=== PATIENT | female | born 1970 | race Caucasian/White ===

== ENCOUNTER 2017-09-02 18:27 | Emergency (ER) | payer OTHER ==
[~2017-09-02] VITALS: Ht 175.3 cm; Wt 109.8 kg
[~2017-09-02 18:27] MED LIST: ACET325 PO; ALBU90OI INH; ALBU90OI6; ALPR.5 PO; AMIT50 PO; AVONEX PEN30 MCG/0.5 IM; BUDE6HFA INH; Bactrim Ds Tab1 EACH PO; CALCIUM + D SO1 EACH PO; COMPAZINE10 MG PO; CYAN1000 PO; Cipro500 MG PO; Crutch1 EACH MISC; DIAZ5 PO; ESTR2 PO; Flagyl500 MG PO; GABA300 PO; IBUP400 PO; IBUP600 PO; LIDO5TP TOP; LISI5 PO; Norco 5-325 Ta1 EACH PO; OMEP10ER; OMEP10ER PO; OSTERA TABLET1 EACH PO; OXYACE5T PO; OXYC5; PENVK500 PO; PROACE100 PO; Pepto-Bism525 MG/15; Percocet 5-3251 EACH PO; QVAR7.3 G1 INH; SUMA25 PR; Sumatriptan5 MG PO; TOPI25 PO; Ultram50 MG PO; VICODIN 5-3001 EACH PO; Zofran Odt4 MG SL
[2017-09-02] MEDS ORDERED: Robaxin-750750 MG PO (20:28)
[2017-09-02] MEDS ORDERED: IBUP600 PO (20:28)
== END 2017-09-02 20:56 | disposition home or self-care (01) ==
LOC: ER 18:27
DX: M62.830 Muscle spasm of back (principal); M62.838 Other muscle spasm; J44.9 Chronic obstructive pulmonary disease, unspecified; F17.210 Nicotine dependence, cigarettes, uncomplicated; Z88.5 Allergy status to narcotic agent; Z88.8 Allergy status to other drugs, medicaments and biological substances; Z79.899 Other long term (current) drug therapy; Z79.51 Long term (current) use of inhaled steroids
CPT/HCPCS: 99283

== ENCOUNTER 2019-10-04 20:25 | Observation (INO) | payer OTHER ==
[~2019-10-04] VITALS: Ht 170.2 cm; Wt 95.2 kg
[~2019-10-04 20:25] MED LIST changes: -ALBU90OI INH; -AMIT50 PO; -BUDE6HFA INH; -LISI5 PO; -OMEP10ER PO; -OXYC5; +Robaxin-750750 MG PO; -TOPI25 PO
[2019-10-04] MEDS ORDERED: BUDE6HFA INH (20:47)
[2019-10-04] MEDS ORDERED: OXYC5 PO (20:48)
[2019-10-04] MEDS ORDERED: ALBU90OI INH (20:49)
[2019-10-04] MEDS ORDERED: ESTROGEN-METHY1 EAC1 PO (20:49)
[2019-10-04] MEDS ORDERED: Tessalon Perle100 MG PO (20:51)
[2019-10-04] MEDS ORDERED: OMEP20ER PO (20:53)
[2019-10-04] MEDS ORDERED: LISI5 PO (20:54)
[2019-10-04] MEDS ORDERED: TOPI50 PO (20:54)
[2019-10-04] MEDS ORDERED: AMIT25 PO (20:55)
[2019-10-04] MEDS ORDERED: GABAPENTIN600 MG PO (21:02)
[2019-10-04] MEDS ORDERED: PROZAC40 MG PO (21:02)
[2019-10-04 21:06] LABS: BASOPHILS ABSOLUTE AUTO 0.07 K/mm3 (0.00-0.23); BASOPHILS PERCENT AUTO 1 % (0-2); EOSINOPHILS ABSOLUTE AUTO 0.27 K/mm3 (0.00-0.68); EOSINOPHILS PERCENT AUTO 3 % (0-6); Hematocrit 46.7 % (33.0-51.0); Hemoglobin 15.8 g/dL (11.5-16.0); IMMATURE GRAN ABSOLUTE AUTO 0.04 K/mm3 (0.00-0.10); IMMATURE GRAN PERCENT AUTO 1 % (0-1); LYMPHOCYTES ABSOLUTE AUTO 2.84 K/mm3 (0.84-5.20); LYMPHOCYTES PERCENT AUTO 33 % (21-46); MONOCYTES ABSOLUTE AUTO 0.45 K/mm3 (0.16-1.47); MONOCYTES PERCENT AUTO 5 % (4-13); Mean Corpuscular HGB 31.2 pg (26.0-34.0); Mean Corpuscular HGB Conc 33.8 g/dL (31.5-36.5); Mean Corpuscular Volume 92 fL (80-100); Mean Platelet Volume 11.5 fL (9.1-12.4); NEUTROPHILS ABSOLUTE AUTO 4.83 K/mm3 (1.96-9.15); NEUTROPHILS PERCENT AUTO 57 % (41-73); Platelet Count 167 K/mm3 (150-400); RDW Coefficient Variation 14.2 % (11.7-14.2); RDW Standard Deviation 47.7 fL (35.1-46.3); Red Blood Cell Count 5.07 M/mm3 (3.80-5.20)
[2019-10-04] MEDS ORDERED: Baclofen10 MG PO (21:14)
[2019-10-04 21:31] LABS: Alanine Aminotransfer (ALT/SGP 38 U/L (12-78); Albumin, Blood 3.7 g/dL (3.4-5.0); Albumin/Globulin Ratio 1.1 (0.8-1.8); Alk Phos 78 U/L (50-136); Anion Gap 10 mmol/L (6-16); Aspartate Aminotrans (AST/SGOT 22 U/L (12-37); Bilirubin, Total 0.3 mg/dL (0.1-1.0); Blood Urea Nitrogen 9 mg/dL (8-24); Bun/Creatinine Ratio 11.6 (12.0-20.0); CO2, Blood 21 mmol/L (21-32); Calcium, Blood 8.8 mg/dL (8.5-10.1); Chloride, Blood 112 mmol/L (98-108); Creatinine, Blood 0.78 mg/dL (0.40-1.00); Ethanol (Alcohol), Blood, Med 176 mg/dL; Globulin, Blood 3.3 g/dL (2.2-4.0); Glomerular Filtration Rate >60 (60-); Glucose, Blood 118 mg/dL (70-99); Potassium, Blood 3.5 mmol/L (3.5-5.5); Salicylate 2.4 mg/dL (2.8-20.0); Sodium, Blood 143 mmol/L (136-145)
[2019-10-04 21:32] LABS: Thyroxine (T4) 11.4 ug/dL (4.8-13.9)
[2019-10-04 21:33] LABS: Acetaminophen, Random <2.0 ug/mL (10.0-30.0)
[2019-10-05 10:23] LABS: Source, Urine Clean Catch
[2019-10-05 10:29] LABS: Bilirubin, Urine Neg (Neg); Blood, Urine Neg (Neg); Glucose Qualitative, Urine Neg (Neg); Ketones, Urine 1+ (Neg); Leukocyte Esterase, Urine 1+ (Neg); Nitrite, Urine Neg (Neg); Protein, Urine 1+ (Neg); Urobilinogen, Urine NORM (Normal)
[2019-10-05 10:51] LABS: U Amphetamine Screen DETECTED; U Methamphetamine Screen DETECTED
[2019-10-05 10:52] LABS: U Barbituate Screen Not Detected; U Benzodiazapine Screen DETECTED; U Buprenorphine Screen Not Detected; U Cannabinoids Screen Not Detected; U Cocaine Screen Not Detected; U Methadone Screen Not Detected; U Opiates Screen Not Detected; U Oxycodone Screen Not Detected; U Phencyclidine Screen Not Detected; U Propoxyphene Screen Not Detected
[2019-10-05 10:55] LABS: Appearance, Urine Clear (Clear); Bacteria Rare /hpf; Color, Urine Yellow (P-Yellow); Red Blood Cells, Urine Not Seen /hpf (0-2); Squamous Epithelial Cells Rare /hpf (Few); White Blood Cells, Urine 0-2 /hpf (0-5)
== END 2019-10-05 11:24 | disposition home or self-care (01) ==
LOC: ER 20:25 → EOR 20:26
PROVIDERS: ADMIT Emergency Medicine
DX: F10.129 Alcohol abuse with intoxication, unspecified (principal); R45.851 Suicidal ideations; F32.9 Major depressive disorder, single episode, unspecified; K21.9 Gastro-esophageal reflux disease without esophagitis; G43.909 Migraine, unspecified, not intractable, without status migrainosus; J45.909 Unspecified asthma, uncomplicated; Z87.891 Personal history of nicotine dependence; Z88.5 Allergy status to narcotic agent; Z88.8 Allergy status to other drugs, medicaments and biological substances; Z79.899 Other long term (current) drug therapy
CPT/HCPCS: 36415; 80053; 81001; 81025; 84436; 85025; 99285; G0378; G0480

== ENCOUNTER 2019-11-15 12:38 | Inpatient (IN) | payer OTHER ==
[~2019-11-15] VITALS: Ht 167.6 cm; Wt 109.1 kg
[~2019-11-15 12:38] MED LIST changes: +Baclofen10 MG PO; +GABAPENTIN600 MG PO; +PROZAC40 MG PO; +Tessalon Perle100 MG PO
[2019-11-15 13:08] LABS: Source, Urine Clean Catch
[2019-11-15 13:15] LABS: Blood, Urine Neg (Neg); Glucose Qualitative, Urine Neg (Neg); Ketones, Urine 1+ (Neg); Leukocyte Esterase, Urine Neg (Neg); Nitrite, Urine Neg (Neg); Protein, Urine 2+ (Neg); Urobilinogen, Urine 2+ (Normal)
[2019-11-15 13:22] LABS: Alanine Aminotransfer (ALT/SGP 46 U/L (12-78); Albumin, Blood 3.7 g/dL (3.4-5.0); Alk Phos 79 U/L (50-136); Anion Gap 5 mmol/L (6-16); Aspartate Aminotrans (AST/SGOT 33 U/L (12-37); Bilirubin, Total 0.8 mg/dL (0.1-1.0); Blood Urea Nitrogen 12 mg/dL (8-24); Bun/Creatinine Ratio 15.2 (12.0-20.0); CO2, Blood 24 mmol/L (21-32); Calcium, Blood 8.9 mg/dL (8.5-10.1); Chloride, Blood 109 mmol/L (98-108); Creatinine, Blood 0.79 mg/dL (0.40-1.00); Globulin, Blood 3.7 g/dL (2.2-4.0); Glomerular Filtration Rate >60 (60-); Glucose, Blood 66 mg/dL (70-99); Potassium, Blood 4.9 mmol/L (3.5-5.5); Salicylate 2.4 mg/dL (2.8-20.0); Sodium, Blood 138 mmol/L (136-145); Total Protein, Blood 7.4 g/dL (6.4-8.2)
[2019-11-15 13:23] LABS: Acetaminophen, Random <2.0 ug/mL (10.0-30.0)
[2019-11-15] MEDS ORDERED: LISI5 PO (13:26)
[2019-11-15] MEDS ORDERED: OMEP20ER PO (13:26)
[2019-11-15] MEDS ORDERED: TOPI50 PO (13:26)
[2019-11-15] MEDS ORDERED: ESTROGEN-METHY1 EAC1 PO (13:27)
[2019-11-15] MEDS ORDERED: BUDE6HFA INH (13:27)
[2019-11-15] MEDS ORDERED: AMIT25 PO (13:27)
[2019-11-15] MEDS ORDERED: OXYC5 PO (13:27)
[2019-11-15] MEDS ORDERED: VENLAFAXINE H37.5 M1 PO (13:28)
[2019-11-15] MEDS ORDERED: PREGABALIN150 MG PO (13:29)
[2019-11-15] MEDS ORDERED: ALBU90OI INH (13:30)
[2019-11-15 13:32] LABS: U Amphetamine Screen DETECTED; U Barbituate Screen Not Detected; U Benzodiazapine Screen DETECTED; U Buprenorphine Screen Not Detected; U Cannabinoids Screen Not Detected; U Cocaine Screen Not Detected; U Methadone Screen Not Detected; U Methamphetamine Screen DETECTED; U Opiates Screen Not Detected; U Oxycodone Screen Not Detected; U Phencyclidine Screen Not Detected; U Propoxyphene Screen Not Detected
[2019-11-15 13:40] LABS: Appearance, Urine Hazy (Clear); Bacteria Rare /hpf; Bilirubin, Urine 1+ (Neg); Color, Urine Yellow (P-Yellow); Red Blood Cells, Urine Not Seen /hpf (0-2); Squamous Epithelial Cells Few /hpf (Few); White Blood Cells, Urine Not Seen /hpf (0-5)
[2019-11-15 13:41] LABS: Mucus Light (0-Heavy)
[2019-11-15 13:46] LABS: BASOPHILS ABSOLUTE AUTO 0.09 K/mm3 (0.00-0.23); BASOPHILS PERCENT AUTO 1 % (0-2); EOSINOPHILS ABSOLUTE AUTO 0.37 K/mm3 (0.00-0.68); EOSINOPHILS PERCENT AUTO 4 % (0-6); Hematocrit 48.8 % (33.0-51.0); Hemoglobin 16.4 g/dL (11.5-16.0); IMMATURE GRAN ABSOLUTE AUTO 0.03 K/mm3 (0.00-0.10); IMMATURE GRAN PERCENT AUTO 0 % (0-1); LYMPHOCYTES ABSOLUTE AUTO 3.31 K/mm3 (0.84-5.20); LYMPHOCYTES PERCENT AUTO 39 % (21-46); MONOCYTES ABSOLUTE AUTO 0.83 K/mm3 (0.16-1.47); MONOCYTES PERCENT AUTO 10 % (4-13); Mean Corpuscular HGB 31.6 pg (26.0-34.0); Mean Corpuscular HGB Conc 33.6 g/dL (31.5-36.5); Mean Corpuscular Volume 94 fL (80-100); Mean Platelet Volume 11.8 fL (9.1-12.4); NEUTROPHILS ABSOLUTE AUTO 3.84 K/mm3 (1.96-9.15); NEUTROPHILS PERCENT AUTO 45 % (41-73); NRBC ABSOLUTE 0.06 K/mm3 (0.00-0.02); NRBC Auto 0.7 /100 WBC (0.0-0.2); Platelet Count 164 K/mm3 (150-400); RDW Coefficient Variation 14.1 % (11.7-14.2); RDW Standard Deviation 48.9 fL (35.1-46.3); Red Blood Cell Count 5.19 M/mm3 (3.80-5.20); White Blood Cell Count 8.47 K/mm3 (4.00-11.30)
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
--- NOTE | 2019-11-15 18:00 | NUR ---
Patient has shahid resting intermitently and watching TV. She is cooperative with care. Her family has called and gave updates. She has been slightly hypotensive with systolics 88-100 and MAP >65. She remains on RA and sats upper 90%'s. She has banana bag continues at 200 ml/hr. She continues to state has feelings of suicidal idealations.
--- NOTE | 2019-11-15 18:37 | NUR ---
CALL PLACED TO [facility] Poison control center updated by this RN. Recommends salicylate level 6 hours after last draw. Also notified that pt would like to eat. New orders given for diet. Provider states that salicylate level to be drawn at 1999.
[2019-11-15 20:49] LABS: Anion Gap 5 mmol/L (6-16); Blood Urea Nitrogen 10 mg/dL (8-24); Bun/Creatinine Ratio 11.7 (12.0-20.0); CO2, Blood 26 mmol/L (21-32); Calcium, Blood 8.5 mg/dL (8.5-10.1); Chloride, Blood 108 mmol/L (98-108); Creatinine, Blood 0.85 mg/dL (0.40-1.00); Glomerular Filtration Rate >60 (60-); Glucose, Blood 103 mg/dL (70-99); Salicylate <1.7 mg/dL (2.8-20.0); Sodium, Blood 139 mmol/L (136-145)
[2019-11-16 03:39] LABS: BASOPHILS ABSOLUTE AUTO 0.04 K/mm3 (0.00-0.23); BASOPHILS PERCENT AUTO 1 % (0-2); EOSINOPHILS ABSOLUTE AUTO 0.26 K/mm3 (0.00-0.68); EOSINOPHILS PERCENT AUTO 4 % (0-6); Hematocrit 42.8 % (33.0-51.0); Hemoglobin 14.2 g/dL (11.5-16.0); IMMATURE GRAN ABSOLUTE AUTO 0.03 K/mm3 (0.00-0.10); IMMATURE GRAN PERCENT AUTO 0 % (0-1); LYMPHOCYTES ABSOLUTE AUTO 2.71 K/mm3 (0.84-5.20); LYMPHOCYTES PERCENT AUTO 38 % (21-46); MONOCYTES ABSOLUTE AUTO 0.54 K/mm3 (0.16-1.47); MONOCYTES PERCENT AUTO 8 % (4-13); Mean Corpuscular HGB 31.4 pg (26.0-34.0); Mean Corpuscular HGB Conc 33.2 g/dL (31.5-36.5); Mean Corpuscular Volume 95 fL (80-100); Mean Platelet Volume 11.3 fL (9.1-12.4); NEUTROPHILS PERCENT AUTO 50 % (41-73); NRBC ABSOLUTE 0.05 K/mm3 (0.00-0.02); NRBC Auto 0.7 /100 WBC (0.0-0.2); Platelet Count 118 K/mm3 (150-400); RDW Coefficient Variation 14.4 % (11.7-14.2); RDW Standard Deviation 49.9 fL (35.1-46.3); Red Blood Cell Count 4.52 M/mm3 (3.80-5.20); White Blood Cell Count 7.18 K/mm3 (4.00-11.30)
[2019-11-16 03:58] LABS: Alanine Aminotransfer (ALT/SGP 35 U/L (12-78); Albumin, Blood 3.2 g/dL (3.4-5.0); Albumin/Globulin Ratio 1.1 (0.8-1.8); Alk Phos 66 U/L (50-136); Anion Gap 4 mmol/L (6-16); Aspartate Aminotrans (AST/SGOT 16 U/L (12-37); Bilirubin, Total 0.7 mg/dL (0.1-1.0); Blood Urea Nitrogen 8 mg/dL (8-24); Bun/Creatinine Ratio 9.9 (12.0-20.0); CO2, Blood 27 mmol/L (21-32); Calcium, Blood 8.3 mg/dL (8.5-10.1); Chloride, Blood 108 mmol/L (98-108); Creatinine, Blood 0.81 mg/dL (0.40-1.00); Globulin, Blood 2.9 g/dL (2.2-4.0); Glomerular Filtration Rate >60 (60-); Glucose, Blood 78 mg/dL (70-99); Magnesium, Blood 2.4 mg/dL (1.6-2.4); Sodium, Blood 139 mmol/L (136-145); Total Protein, Blood 6.1 g/dL (6.4-8.2)
--- NOTE | 2019-11-16 04:57 | NUR ---
SHIFT SUMMARY PATIENT SLEPT WELL THROUGH NIGHT. DENIES ANY INTENTION OF HARMING SELF. PLEASANT TO CONVERSE WITH. HAS BECOME MORE COORDINATED NIGHT HAS GONE ON, WAS ABLE TO FEED HERSELF YOGURT BEFORE GOING TO BED ~ 23:00. NO C/O PAIN. ASSESSMENT IS CHARTED. VSS. WILL CONTINUE TO MONITOR.
--- NOTE | 2019-11-16 16:06 | NUR ---
TRANSFER OF CARE REPORT GIVEN TO LESIA KIDD ON MEDICAL FLOOR. PT HAS BEEN ALERT AND ORIENTED, DENIES SI AT THIS TIME. DR JONES SAW PT PRIOR TO TRANSFER. MONITOR HAS SHOWN PT TO BE SINUS RYTHYMN AND VITALS HAVE REMAINED STABLE. PT ESCORTED TO ROOM 347 VIA WHEELCHAIR BY EV KWONG. CENTRAL MONITORING NOTIFIED OF PT'S ROOM CHANGE.
--- NOTE | 2019-11-16 17:13 | NUR ---
Janelle was tearful and distraught regarding the end of her 17 year marriage. She is heartbroken and fearful of her future. She has adult children who are supportive. I provided theraputic listening, gentle camp head counselor, and affirmation of hope. We had an easy rapport. she is not orthodoxy. I will remain available.
--- NOTE | 2019-11-16 18:24 | NUR ---
SHIFT SUMMARY: ASSUMED CARE OF PT UPON HER ARRIVAL FROM ICU AT 1601. A&O X 3, PLEASANT, BUT WITHDRAWN. DENIES SI AT THIS TIME. EDUCATED ABOUT SUICIDE PRECUATIONS IN ROOM, SHE VERBALIZED UNDERSTANDING. BELONGINS LOCKED IN ROOM CABINET. MADE PHONE CALL TO HER SON AND AMBULATED IN HALLWAY UNDER RN SUPERVISION, GAIT STEADY. GOOD APPETITE. DENIES PAIN AT THIS TIME. PLAN IS D/C EARLY IN THE MORNING AFTER DR. AUSTIN SEES PATIENT SHE HAS APPOINTMENT WITH DR. BELCHER AT 10:30 AND IS QUITE STRESSED ABOUT MISSING IT. D/C ORDERS PLACED BY DR. OROSCO.
--- NOTE | 2019-11-16 21:31 | NUR ---
1930 PT RESTING COMFORTABLY IN BED; CHEERFUL; PT ON CAMERA ALL NIGHT; DENIES SUICIDAL IDEATIONS AT THIS TIME; TALKING WITH NURSE IN CALM MANNER.
--- NOTE | 2019-11-17 04:54 | NUR ---
SHIFT SUMMARY: 49 Y/O OBESE FEMALE RESTED COMFORTABLY ALL SHIFT; PT DENIES SUICIDAL IDEATIONS; PT CONTINUES TO BE ON CAMERA OBSERVATION; PT CHEERFUL AND COMMUNICATING WITH NURSING STAFF; DENIES PAIN OR NAUSEA; TELEMETRY REFLECTS NSR PER JEWELS--SEAMAN OFFICER; BED LOW POSITION WITH CALL LIGHT AT SIDE.
--- NOTE | 2019-11-17 08:00 | NUR ---
PT PLEASNT COOOP A.O. DENIES PAIN. DENIES INTENT TO HARM SELF. H/R REG, NO MURMER NOTED. PER TELE S SUSY 59. LUNGS CLEAR RESP EASY, UNLABORED ON R.A. BT X4 LAST BM 2 DAYS, VOIDS BATHROOM. SBA. ON SI WATCH. CAMERA. DR OROSCO D/C PENDING DR BRANCH D.C THAN TO GO TO DR SCHRADER. BED IN LOW POSITION, CALL LITE IN REACH, CALLS APPROP
--- NOTE | 2019-11-17 09:17 | NUR ---
PT DISCHARGE REVIEWED WITH PT. PT VERBALIZED UNDERSTNDING. GOING STRAIGHT TO DR SCHRADER WITH PSYCHIATRY. IV PULLED INTACT. TELE REMOVED AND RETURNEDTO PCU. WALKED PT TO DOOR AT 0918
== END 2019-11-17 09:20 | disposition home or self-care (01) | DRG 917 ==
LOC: ER 12:38 → ICUE 15:10 → ICUW 15:10 → ICUE 15:54 → MEDS 11-16 16:01
PROVIDERS: Emergency Medicine; Nurse Practitioner Acute Care; ADMIT Internal Medicine
DX: T43.212A Poisoning by selective serotonin and norepinephrine reuptake inhibitors, intentional self-harm, initial encounter (principal); G92 Toxic encephalopathy; F31.81 Bipolar II disorder; J44.9 Chronic obstructive pulmonary disease, unspecified; I10 Essential (primary) hypertension; G43.909 Migraine, unspecified, not intractable, without status migrainosus; K21.9 Gastro-esophageal reflux disease without esophagitis; F17.210 Nicotine dependence, cigarettes, uncomplicated; Z59.0 Homelessness; Y92.9 Unspecified place or not applicable; T42.6X2A Poisoning by other antiepileptic and sedative-hypnotic drugs, intentional self-harm, initial encounter; R45.87 Impulsiveness
CPT/HCPCS: 36415; 51702; 80048; 80053; 81001; 81025; 82550; 82947; 83605; 83735; 85025; 93005; 93010; 94640; 94760; 99285-25; A9270-GY; C9113; G0480; J1650; J2060; J3411; J3475; J7042; J7120

== ENCOUNTER → 2022-09-23 | Outpatient (CLI) | payer OTHER ==
[~2022-09-23] MED LIST changes: +ALBU90OI INH; +AMIT25 PO; +BUDE6HFA INH; +ESTROGEN-METHY1 EAC1 PO; +LISI5 PO; +OMEP20ER PO; +OXYC5 PO; +PREGABALIN150 MG PO; +TOPI50 PO; +VENLAFAXINE H37.5 M1 PO
== END | disposition home or self-care (01) ==
LOC: LAB 14:28 → LAB SHORT 14:28 → LAB FUT 07-31 12:35
PROVIDERS: Internal Medicine
DX: R79.89 Other specified abnormal findings of blood chemistry (principal)
CPT/HCPCS: 81050

== ENCOUNTER 2022-10-30 16:12 | Emergency (ER) | payer OTHER ==
[~2022-10-30] VITALS: Ht 175.3 cm; Wt 109.3 kg
[2022-10-30 16:53] LABS: BASOPHILS ABSOLUTE AUTO 0.03 K/mm3 (0.00-0.23); BASOPHILS PERCENT AUTO 1 % (0-2); EOSINOPHILS ABSOLUTE AUTO 0.12 K/mm3 (0.00-0.68); EOSINOPHILS PERCENT AUTO 2 % (0-6); Hematocrit 45.3 % (33.0-51.0); Hemoglobin 15.2 g/dL (11.5-16.0); IMMATURE GRAN PERCENT AUTO 0 % (0-1); LYMPHOCYTES ABSOLUTE AUTO 1.51 K/mm3 (0.84-5.20); LYMPHOCYTES PERCENT AUTO 27 % (21-46); MONOCYTES ABSOLUTE AUTO 0.38 K/mm3 (0.16-1.47); MONOCYTES PERCENT AUTO 7 % (4-13); Mean Corpuscular HGB 31.3 pg (26.0-34.0); Mean Corpuscular HGB Conc 33.6 g/dL (31.5-36.5); Mean Corpuscular Volume 93 fL (80-100); Mean Platelet Volume 11.8 fL (9.1-12.4); NEUTROPHILS ABSOLUTE AUTO 3.51 K/mm3 (1.96-9.15); NEUTROPHILS PERCENT AUTO 63 % (41-73); Platelet Count 170 K/mm3 (150-400); RDW Coefficient Variation 13.3 % (11.7-14.2); RDW Standard Deviation 45.1 fL (35.1-46.3); Red Blood Cell Count 4.86 M/mm3 (3.80-5.20); White Blood Cell Count 5.55 K/mm3 (4.00-11.30)
[2022-10-30 17:22] LABS: Albumin, Blood 3.9 g/dL (3.4-5.0); Albumin/Globulin Ratio 1.3 (0.8-1.8); Bilirubin, Total 0.3 mg/dL (0.1-1.0); Bun/Creatinine Ratio 10.3 (12.0-20.0); Calcium, Blood 9.2 mg/dL (8.5-10.1); Creatinine, Blood 0.88 mg/dL (0.40-1.00); Total Protein, Blood 6.9 g/dL (6.4-8.2)
[2022-10-30 21:00] VITALS: BP 116/95
[2022-10-30] MEDS ORDERED: OXAYDO5 M1 PO (21:32)
[2022-10-30] MEDS ORDERED: ONDA4ODT MM (21:32)
[2022-10-30] MEDS ORDERED: PROMETHAZINE12.5 M1 PO (21:32)
== END 2022-10-30 21:55 | disposition home or self-care (01) ==
LOC: ER 16:12
PROVIDERS: Physician Assistant
DX: R10.11 Right upper quadrant pain (principal); R11.2 Nausea with vomiting, unspecified; K83.8 Other specified diseases of biliary tract; K82.8 Other specified diseases of gallbladder; Z88.5 Allergy status to narcotic agent; Z88.8 Allergy status to other drugs, medicaments and biological substances; Z79.899 Other long term (current) drug therapy; F17.210 Nicotine dependence, cigarettes, uncomplicated; J44.9 Chronic obstructive pulmonary disease, unspecified; I10 Essential (primary) hypertension; G43.909 Migraine, unspecified, not intractable, without status migrainosus; K21.9 Gastro-esophageal reflux disease without esophagitis
CPT/HCPCS: 80053; 83690; 85025; A9270; J1885; J2765